=== PATIENT | male | born 1960 | race Caucasian/White ===

== ENCOUNTER 2016-12-22 18:29 | Inpatient (IN) | payer MEDICAID, SELFPAY ==
[~2016-12-22] VITALS: Ht 170.2 cm; Wt 68.8 kg
[2016-12-22] MEDS ORDERED: ASPIRIN 81 MG TABLET CHEW ONE (18:50)
[2016-12-22] MEDS ORDERED: NITROGLYCERIN OINT 2%, 1GM TP ONE ×2 (18:50→19:30)
[2016-12-22 19:19] LABS: BLOOD UREA NITROGEN 10 mg/dL (7-18)
[2016-12-22 19:26] LABS: ASPARTATE AMINO TRANSFERASE 20 U/L (15-37)
[2016-12-22] MEDS ORDERED: ASPIRIN 81 MG TABLET CHEW PO ONE (19:30)
[2016-12-22 19:39] LABS: IS PT STATUS REG ER OR PRE ER? YES
[2016-12-22] MEDS ORDERED: HEPARIN 25,000 UNITS/500ML PMX 500 ML IV PRN (21:00)
[2016-12-22] MEDS ORDERED: HEPARIN 5,000 UNITS/ML, 1ML IV PRN (21:00)
[2016-12-22] MEDS ORDERED: HEPARIN 5,000 UNITS/ML, 1ML IV ONE (21:00)
[2016-12-22] MEDS ORDERED: HEPARIN 25,000 UNITS/500ML PMX 500 ML ONE (21:02)
[2016-12-22] MEDS ORDERED: HEPARIN 5,000 UNITS/ML, 1ML ONE (21:02)
[2016-12-22] MEDS ORDERED: NITROGLYCERIN 0.4 MG BOTTLE (25 TABS) SL PRN (22:00)
[2016-12-22] MEDS ORDERED: HYDROmorphone 2 MG/ML, 1ML IVPush PRN (22:00)
[2016-12-22] MEDS ORDERED: ONDANSETRON 2MG/ML, 2ML IVPush PRN (22:00)
[2016-12-22] MEDS ORDERED: ENALAPRILAT 1.25 MG/ML, 2ML IVPush PRN ×2 (22:00)
[2016-12-22] MEDS ORDERED: TEMAZEPAM 15 MG CAPSULE PO PRN (22:00)
[2016-12-22 22:18] VITALS: BP 112/72
[2016-12-23 01:31] LABS: IS PT STATUS REG ER OR PRE ER? NO
[2016-12-23 04:03] VITALS: BP 114/76
[2016-12-23 07:21] LABS: BLOOD UREA NITROGEN 14 mg/dL (7-18)
[2016-12-23 07:25] LABS: IS PT STATUS REG ER OR PRE ER? NO
[2016-12-23] MEDS ORDERED: REGADENOSON 0.4 MG/5 ML SYRINGE ONE (08:33)
[2016-12-23 09:39] VITALS: BP 128/85
[2016-12-23] MEDS ORDERED: ACETAMINOPHEN 325 MG TABLET PO PRN (10:00)
[2016-12-23 15:23] VITALS: BP 130/86
[2016-12-23 19:40] VITALS: BP 128/87
[2016-12-24 04:00] VITALS: BP 133/89
[2016-12-24 07:05] VITALS: BP 126/84
[2016-12-24] MEDS ORDERED: VERAPAMIL 2.5 MG/ML, 2ML ONE (12:42)
[2016-12-24] MEDS ORDERED: MIDAZOLAM 1 MG/ML, 5ML ONE (12:42)
[2016-12-24] MEDS ORDERED: FENTANYL PF 100 MCG/2ML ONE (12:42)
[2016-12-24] MEDS ORDERED: LIDOCAINE 2%, 20ML ONE (12:43)
[2016-12-24] MEDS ORDERED: BIVALIRUDIN 250 MG ONE (12:43)
[2016-12-24] MEDS ORDERED: HEPARIN 1,000 UNITS/ML, 10ML ONE (12:43)
[2016-12-24] MEDS ORDERED: TICAGRELOR 90 MG TABLET ONE (12:43)
[2016-12-24 15:08] VITALS: BP 136/80
[2016-12-24 18:35] VITALS: BP 147/65
[2016-12-24 18:48] VITALS: BP 127/86
[2016-12-24] MEDS: TICAGRELOR 90 MG TABLET PO SCH (20:12)
[2016-12-25 02:22] VITALS: BP 126/82
[2016-12-25 04:57] LABS: BLOOD UREA NITROGEN 20 mg/dL (7-18)
[2016-12-25 07:35] VITALS: BP 129/83
[2016-12-25] MEDS ORDERED: METOPROLOL TARTRATE 25 MG TABLET PO SCH (08:30)
[2016-12-25] MEDS ORDERED: ASPIRIN 81 MG TABLET EC PO SCH (09:00)
[2016-12-25] MEDS ORDERED: NITR0.4T SL (09:14)
[2016-12-25] MEDS ORDERED: ATOR40TA78 PO (09:14)
[2016-12-25] MEDS ORDERED: METO25TA35 PO (09:14)
[2016-12-25] MEDS ORDERED: TICA90TA PO (09:14)
[2016-12-25] MEDS ORDERED: TRAM50TA2 PO (09:14)
[2016-12-25] MEDS ORDERED: ASPI-621 PO (09:14)
[2016-12-25 09:59] VITALS: BP 118/84
[2016-12-25] MEDS: TICAGRELOR 90 MG TABLET PO SCH (10:00)
[2016-12-25] MEDS ORDERED: ATORVASTATIN 40 MG TABLET PO SCH (21:00)
== END 2016-12-25 11:40 | disposition home or self-care (01) | DRG 247 ==
LOC: ED 19:40 → EDIP 20:39 → 5SO 21:45 → DCLOUNGE 12-25 10:45
PROVIDERS: ADMIT Internal Medicine; ATTEND Internal Medicine
PROC: 4A023N7 Measurement of Cardiac Sampling and Pressure, Left Heart, Percutaneous Approach (ICD-10-PCS; principal; 2016-12-24)
PROC: 027034Z Dilation of Coronary Artery, One Artery with Drug-eluting Intraluminal Device, Percutaneous Approach (ICD-10-PCS; 2016-12-24)
PROC: B2111ZZ Fluoroscopy of Multiple Coronary Arteries using Low Osmolar Contrast (ICD-10-PCS; 2016-12-24)
PROC: B2151ZZ Fluoroscopy of Left Heart using Low Osmolar Contrast (ICD-10-PCS; 2016-12-24)
DX: I21.4 Non-ST elevation (NSTEMI) myocardial infarction (principal); E44.1 Mild protein-calorie malnutrition; I10 Essential (primary) hypertension; F17.210 Nicotine dependence, cigarettes, uncomplicated; E78.5 Hyperlipidemia, unspecified; I25.10 Atherosclerotic heart disease of native coronary artery without angina pectoris
CPT/HCPCS: 36415; 71010; 78452; 80048; 80053; 80061; 80307; 83690; 83735; 83880; 84100; 84484; 85025; 85520; 85610; 85730; 93005; 93017; 93306; 93458; 96365; 96375; C1894; C9600; J0583; J1644; J2250; J2785; J3010; J3490; A9502; C1725; C1769; C1874; C1887; C9898; Q9967

== ENCOUNTER 2021-03-16 21:54 | Emergency (ER) | payer MEDICAID ==
[~2021-03-16] VITALS: Ht 170.2 cm; Wt 73.6 kg
[~2021-03-16 21:54] MED LIST: ASPI81TA45 PO; ATOR40TA78 PO; METO25TA35 PO; NITR0.4T41 SL; TICA90TA PO; TRAM50TA2 PO
[2021-03-16 22:29] VITALS: BP 156/107
[2021-03-16] MEDS ORDERED: OXYcodone/APAP 5/325MG TABLET ONE (22:46)
[2021-03-16] MEDS ORDERED: OXYcodone/APAP 5/325MG TABLET PO ONE (23:00)
== END 2021-03-16 22:54 | disposition home or self-care (01) ==
LOC: ED 22:00
DX: K02.9 Dental caries, unspecified (principal); K04.7 Periapical abscess without sinus
CPT/HCPCS: 99283